=== PATIENT | male | born 1940 | race Caucasian/White ===

== ENCOUNTER → 2017-06-23 | Outpatient (CLI) | payer OTHER, MEDICAID ==
[~2017-06-23] MED LIST: COLACE100 MG PO; MOBIC15 MG PO; PERCOCET PO; XARELTO10 MG PO
== END ==
LOC: M.MRI 10:58
DX: S83.282A Other tear of lateral meniscus, current injury, left knee, initial encounter (principal); S83.242A Other tear of medial meniscus, current injury, left knee, initial encounter; M76.52 Patellar tendinitis, left knee; M17.12 Unilateral primary osteoarthritis, left knee; M25.462 Effusion, left knee; X58.XXXA Exposure to other specified factors, initial encounter; Y93.89 Activity, other specified; Y92.89 Other specified places as the place of occurrence of the external cause; Y99.8 Other external cause status

== ENCOUNTER 2017-07-14 08:21 | Inpatient (IN) | payer OTHER, MEDICAID ==
[2017-06-25 10:52] LABS: HEMATOCRIT 44.9 % (42.0-52.0); HEMOGLOBIN 15.2 gm/dL (14.0-18.0); MCH 32.5 pg (26.0-34.0); MCV 95.6 fL (80.0-100.0); MPV 8.2 fl. (7.2-11.1); RBC 4.7 mil/uL (4.50-6.00); RDW-CV 13.2 % (10.5-14.5); WBC 5.8 thou/uL (4.0-11.0)
[2017-06-25 10:58] LABS: PROTIME 9.5 Seconds (9.20-11.50)
[2017-06-25 11:03] LABS: ALBUMIN 3.5 g/dL (3.4-5.0); CREATININE 0.9 mg/dL (0.6-1.3); POTASSIUM 3.9 mmol/L (3.5-5.1); TOTAL BILIRUBIN 0.6 mg/dL (<0.1-1.0); TOTAL PROTEIN 6.9 g/dL (6.4-8.2)
[2017-06-25 11:06] LABS: URINE BILIRUBIN NEGATIVE (Negative); URINE BLOOD 1+ (Negative); URINE CLARITY CLEAR; URINE COLOR YELLOW; URINE GLUCOSE-RANDOM NEGATIVE (Negative); URINE KETONES NEGATIVE (Negative); URINE LEUKOCYTES-REFLEX NEGATIVE (Negative); URINE NITRITE-REFLEX NEGATIVE (Negative); URINE PROTEIN NEGATIVE (Negative); URINE UROBILINOGEN 0.2 E.U./dl (0.2-1.0)
[2017-06-25 11:14] LABS: BACTERIA-REFLEX None Seen /HPF (None Seen); CASTS None Seen /LPF (None Seen); CRYSTALS None Seen /LPF (None Seen); MUCUS 0-3 Light strn/LPF (None Seen); SQUAMOUS 0-3 Few /LPF (0-3); URINE RBC 0-2 Rare /HPF (0-2); URINE WBC-REFLEX None Seen /HPF (0-5)
--- NOTE | 2017-06-25 13:52 | EKG ---
[place] [address] ELECTROCARDIOGRAM REPORT Name: RADHA WILLOUGHBY Room: PRE IN [facility].#: [id number] Admission: Attend Phys: Eduardo Cherry Discharge: Date of : 40 Report #: [id number] THIS REPORT FOR: //name// 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
[~2017-07-14] VITALS: Ht 167.6 cm; Wt 76.2 kg
[~2017-07-14 08:21] MED LIST changes: -COLACE100 MG PO; -PERCOCET PO; -XARELTO10 MG PO
[2017-07-14 08:55] VITALS: BP 139/85
--- NOTE | 2017-07-14 15:00 | NUR ---
PT ARRIVED TO UNIT. PT GIVEN CALL LIGHT AND INSTRUCTED ON ITS USE IN [place]. PT SPEAKS MINIMAL JORDANIAN. PT VERBALIZES UNDERSTANDING. DENIES PAIN. PT VOMITING. GIVEN ZOFRAN
[2017-07-14 15:30] VITALS: BP 152/86
--- NOTE | 2017-07-14 17:12 | NUR ---
RECIEVED O.T. EVAL AND TX. WILL DEFER TO P.T. AND NURSING AT THIS TIME. PLEASE ORDER FURTHER O.T. SERVICES IF NEEDED.
[2017-07-14 20:00] VITALS: BP 127/78
[2017-07-15] VITALS (7 sets, daily range): BP systolic 115–125; BP diastolic 56–77
--- NOTE | 2017-07-15 04:28 | NUR ---
PATIENT RESTING QUIETLY ON HOURLY ROUNDS. DENIES PAIN AND NAUSEA. VOIDING ADEQUATELY PER URINAL. DRESSING TO LEFT KNEE CLEAN, DRY AND INTACT WITH POLAR CARE IN PLACE. VITALS STABLE ON 2L O2 NC, CONT PULSE OX. WILL CONTINUE TO MONITOR.
[2017-07-15 04:32] LABS: HEMATOCRIT 40.2 % (42.0-52.0); HEMOGLOBIN 13.9 gm/dL (14.0-18.0)
--- NOTE | 2017-07-15 15:00 | NUR ---
SPOKE WITH PT.,SON IN LAW-MAYLIN, AND DAUGHTER,MIRIAM. SON IN LAW AND DAUGHTER TRANSLATED FOR PT. PT.LIVES WITH THEM IN AN APT. HE HAS 5 STEPS TO ENTER. HE WILL BE USING [employer] [facility]. HE NO LONGER HAS TO USE IT. PT. WOULD LIKE TO USE [facility]. WILL MAKE REFERRAL. HIS PHARMACY IS [facility] [address]. HE IS NORMALLY INDEPENDENT AT HOME. HIS DAUGHTER OR [employer]LIN CAN ASSIST HIM IF NEEDED. CM CALLED IN XARELLEATHA WRITTEN TO PT.'S PHAMRACY. DISCUSSED CPM WITH THEM. [facility] FROM [facility] SAID PT.'S INSURANCE DOES NOT COVER THE CPM. THEY CAN RENT IT FOR $225 FOR 2 WEEKS. PT.SAID THAT WAS TOO MUCH MONEY. THERAPIST SAID PT.IS GETTING GOOD ROM WITH OUT CPM. MARKUS,U[facility]S WILL LET [facility] KNOW THEY DO NOT WANT TO TAKE CPM HOME.
--- NOTE | 2017-07-15 21:18 | NUR ---
THIS NURSE ASSUMES CARE OF PT AT 1915, PT ALERT ORIENTED X4, PT SITTING UP IN RECLINER CHAIR WITH BLE ELVATED, POLAR PACK IN PLACE, CHEPE RILEY TO E, AT 2100 HS MEDS ADMINISTERED, ASSESSMENT COMPLETED, PT RATES PAIN 10/10 PRN PAIN MEDS ADMINISTERED, PT TRANSFERRED TO BED, BILAT FOOT PUMPS APPLIED, PT RESTING QUIETLY AT THIS TIME
[2017-07-16 03:40] VITALS: BP 118/69
[2017-07-16 03:43] LABS: HEMATOCRIT 37.8 % (42.0-52.0); HEMOGLOBIN 12.9 gm/dL (14.0-18.0); MCH 32.7 pg (26.0-34.0); MCHC 34.1 g/dL (28.0-37.0); MCV 95.9 fL (80.0-100.0); MPV 9.2 fl. (7.2-11.1); RBC 3.95 mil/uL (4.50-6.00); WBC 9.2 thou/uL (4.0-11.0)
[2017-07-16 04:15] LABS: CALCIUM 8.2 mg/dL (8.5-10.1); CREATININE 0.8 mg/dL (0.6-1.3); POTASSIUM 3.7 mmol/L (3.5-5.1)
--- NOTE | 2017-07-16 06:41 | NUR ---
PT ORIENTED X 4, VOIDS PER URINAL, VITAL SIGNS STABLE, PT HAS HAD DIFFICULTY GETTING PAIN UNDER CONTROL THIS SHIFT, PT MEDICATED WITH PO AND IV MEDS, POLAR PACK TO LEFT KNEE, PT EDUCATED ON PAIN CONTROL, ENCOURAGED TO NOT GO FOR LONG PERIODS OF TIME OR ALLOW PAIN TO GET ABOVE TOLERABLE LEVEL BEFORE ASKING FOR PAIN MEDS, PT NOW RESTING QUIETLY IN BED WITH EYES CLOSED
[2017-07-16 09:24] VITALS: BP 101/58
[2017-07-16] MEDS ORDERED: COLACE100 MG PO (10:47)
[2017-07-16] MEDS ORDERED: PERCOCET PO (10:49)
[2017-07-16] MEDS ORDERED: XARELTO10 MG PO (10:51)
--- NOTE | 2017-07-16 11:23 | NUR ---
PT.'S COPAY FOR XARELTO AT HER PHARMACY IS $1.44. WILL INFORM PT.'S FAMILY. [facility] DOES CONTRACT WITH PT.'S INSURANCE. FAXED REFERRAL AND ORDERS TO [facility]. ALL INFORMATION PUT ON DISCHARGE INSTRUCTIONS. ELVIN SOTO CHECKING WITH REGARDING DEBORAHRELLEATHA QUESTION.
[2017-07-16 14:32] VITALS: BP 101/58
--- NOTE | 2017-07-16 14:49 | NUR ---
PATIENT CARE ASSUMED AT 0700. PATIENT MOHAWK SPEAKING. ALERT, UNABLE TO ACCURATELY ASSESS COGNITION, BUT APPEARS TO BE ORIENTED X4. HERE FOR LEFT KNEE REPLACEMENT. GIVEN PAIN MEDICATION X1 PER REQUEST. THIS RN NOTICED PATIENT'S BLOOD THINNER WAS NOT ON MAR AND WAS DISCONTINUED YESTERDAY. DR JOHN CALLED. HE STATED HE DID NOT DISCONTINUE MEDICATION AND IT SHOULD BE GIVEN TO PATIENT. MEDICATION REORDERED AND GIVEN TODAY. PATIENT DISCHARGED HOME. 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 BILINGUAL RN FROM ANOTHER UNIT OVER TO GIVE PATIENT'S DISCHARGE INSTRUCTIONS TO PATIENT, SON-IN-LAW, AND DAUGHTER. VERBALIZED UNDERSTANDING OF INSTRUCTIONS. IV DISCONTINUED BY POLARITY TESTER, DRESSED BY POLARITY TESTER. ALL BELONGINGS TAKEN WITH PATIENT AND FAMILY. VOICES UNDERSTANDING TO FOLLOW UP WITH DR JOHN IN 2 WEEKS. TAKEN OUT BY WHEELCHAIR BY BODY WORK AUTO TRIMMER AND LEFT IN PRIVATE VEHICLE WITH FAMILY AT 1440.
--- NOTE | 2017-08-04 11:47 | OP ---
[facility] [address] [place] [address] OPERATIVE REPORT Name: RADHA WILLOUGHBY Room: [address] IN M.R.#: [id number] Admission: 07/14/17 Attend Phys: Eduardo Cherry Discharge: 07/16/17 Date of : 40 Report #: [id number] THIS REPORT FOR: //name// CC: Favio Sweet DATE OF SERVICE: 07/14/2017 PREOPERATIVE DIAGNOSIS: Left knee osteoarthritis. POSTOPERATIVE DIAGNOSIS: Left knee osteoarthritis. PROCEDURE: Left total knee arthroplasty. SURGEON: Familia Cortés II, DO. LEATHER BELT SHAPER: RADHA Rodriguez ANESTHESIA: General endotracheal. ESTIMATED BLOOD LOSS: 50 mL. ANTIBIOTICS: Ancef preoperatively. DRAINS: Medium Hemovac. COMPLICATIONS: None. CONDITION: The patient is stable to recovery room. IMPLANTS: Listed in the operative record and progress note. BRIEF HISTORY: The patient was seen in preoperative area. Preop H and P were performed. Site was marked, questions were answered. Risks and benefits were discussed with the patient in detail about surgery. The patient wished to proceed with procedure and assumed all risks. DESCRIPTION OF PROCEDURE: The patient was taken to the operative suite and placed supine on the operating table, given appropriate anesthesia. A well-padded tourniquet was applied to the upper thigh which was inflated to 300 mmHg after gravity exsanguination. The operative knee was sterilely prepped and draped. Surgery begun by midline incision, was carried down to the subcutaneous tissue. A medial parapatellar arthrotomy was performed and carried down to the bone. The patella was then everted and excess soft tissue removed from around the femur. The femoral cutting block was applied, checked with a drop hussein for [address] [address] OPERATIVE REPORT Name: RADHA WILLOUGHBY Room: [address] IN [facility].#: [id number] Admission: 07/14/17 Attend Phys: Eduardo Cherry Discharge: 07/16/17 Date of : 40 Report #: [id number] rotational alignment, pinned in appropriate position and appropriate cuts were made. A 4-in-1 cutting block was then applied, checked for rotation alignment, pinned in appropriate position and appropriate cuts were made. The tibia was then exposed. Excess meniscus was removed. Retractor was placed along the collateral ligaments. Tibial cutting block was then applied, pinned in appropriate position, checked with drop hussein for rotational alignment and slope and appropriate cut was made. The tibial bone was then removed. Tibial base plate was then applied, checked for rotational alignment with the drop hussein, pinned in appropriate position. Femur was then applied. Box cut was reamed. It was trialed with the appropriate spacer which showed excellent fit and fill and excellent stability of the knee through all range of motion. The patella was then everted and excess soft tissue removed. This was then reamed in appropriate fashion, sized to appropriate size. Three peg holes were then drilled. It was then trialed, shown to have excellent flexion, extension, excellent tracking of the patella within the groove. These trials were then removed. The tibia was punched in appropriate fashion. Bone ends were cleansed with Pulsavac irrigation and cement was mixed and applied to the final implants. These were malleted in position and held the knee in extension and compressed to allow cement to cure. After it cured, excess was removed with a [place] and osteotome. Wound was then copiously irrigated, and the final spacer was then malleted in position. The tourniquet was deflated. Hemostasis was obtained with electrocautery. The pain cocktail was injected. PRP gel was sprayed through internal aspect of the knee. Medium Hemovac drain was then applied. The capsule was closed with 2 FiberWire and 1 Vicryl in [id number] fashion. Skin was closed with 2-0 Vicryl and running 3-0 Monocryl. Dermabond and sterile dressing was applied. Kane wrap and PolarCare applied. The patient was transferred to the recovery room in stable condition. Counts were correct throughout the procedure. <ELECTRONICALLY SIGNED> By: Familia Cortés II, 08/04/17 1147 [id number] [id number] Cortés II, DO /nt
--- NOTE | 2017-10-07 15:08 | PATH ---
[address] [address] PATHOLOGY RPT PROCEDURE Name: RADHA RODRIGUEZ Room: [facility] IN M.R.#: [id number] Admission: 07/14/17 Date of : 40 Discharge: 07/16/17 Report #: [id number] Path Case #: [id number] [facility] Accession Number: [id number] . 01 Material submitted: . LEFT KNEE BONE AND TISSUE . 01 Clinical history: . Left knee DJD . 02 Diagnosis: Left knee bone and tissue, total knee replacement. - Benign synovium and meniscus and benign bone and cartilage with severe degenerative changes. ([facility]:pit; 07/16/2017) QTP/07/16/2017 . 02 Electronically signed: . Shaquille Rogers MD, Pathologist NPI- [id number] . 01 Gross description: . The specimen is received in formalin, labeled "Radha Rodriguez, left knee bone and tissue", are multiple fragments of yellow bone with recognizable portions of the tibialplateau, patella, meniscus (3.7 x 0.8 x 0.7 cm) and rubbery bowman-white soft tissue (4.2 x 3.3 x 1.0 cm). The specimen measures 11.7 x 6.8 x 2.5 cm in aggregate. Few fragments show an irregular articular cartilage with eburnation. Peripheral osteophytes are present. Machine Installer sections are submitted in A1 after decalcification. . ([facility]; 07/14/2017) SHS/SHS . 02 Pathologist provided ICD-10: M17.12 . 02 CPT . 765041, 116235 Performed at: [address], [place] [id number] MD Zak Mendoza MD Phone: [phone] Performed at: [address] [address] Abdul[place]iz [place], [place] [id number] MD Shaquille Rogers MD Phone: [phone]
== END 2017-07-16 14:40 | disposition home health service (06) | DRG 470 ==
LOC: M.PRE → M.ORTHSURG 08:36 → M.TBA 08:36 → M.PRE 10:58 → M.SUR 11:15 → EDSTATUS 11:16 → M.PRE 11:21 → M.ORTHSURG 14:31
PROVIDERS: Internal Medicine; Orthopaedic Surgery; ADMIT Internal Medicine
PROC: 0SRD0J9 Replacement of Left Knee Joint with Synthetic Substitute, Cemented, Open Approach (ICD-10-PCS; principal; 2017-07-14)
DX: M17.12 Unilateral primary osteoarthritis, left knee (principal); F17.210 Nicotine dependence, cigarettes, uncomplicated